=== PATIENT | male | born 1990 | race Caucasian/White ===

== ENCOUNTER 2018-04-01 22:11 | Emergency (ER) | payer MEDICAID, OTHER ==
[~2018-04-01] VITALS: Ht 185.4 cm; Wt 74.8 kg
[2018-04-01 22:18] VITALS: BP 117/80
== END 2018-04-01 23:30 | disposition left against medical advice (07) ==
LOC: EDBD 22:11 → ER 22:14
DX: K05.229 Aggressive periodontitis, generalized, unspecified severity (principal); R45.851 Suicidal ideations; Z53.21 Procedure and treatment not carried out due to patient leaving prior to being seen by health care provider